=== PATIENT | female | born 1990 | race Hispanic/Latino ===

== ENCOUNTER 2018-11-10 18:06 | Emergency (ER) | payer BC ==
[2018-11-10 18:15] VITALS: BP 144/88; PULSE 85; RESP 18; TEMP 98.7; O2SAT 99
[2018-11-10] MEDS ORDERED: Lidocaine 1% (10 ml) Inj INFIL ONE (18:33)
[2018-11-10] MEDS ORDERED: Lidocaine 1% Inj (20ml) ONE (18:47)
--- NOTE | 2018-11-10 19:22 | ED PDOC ---
Upper Extremity Pain/Injury Time Seen by Provider: 11/10/18 18:16 Chief Complaint (Nursing): Finger,Hand,&Wrist Chief Complaint (Provider): Finger,Hand,&Wrist History Per: Patient History/Exam Limitations: no limitations Onset/Duration Of Symptoms: Hrs Current Symptoms Are (Timing): Still Present Additional Complaint(s): Patient is a 28 y/o female with no significant PMHx who states she was picking up clothes off of the floor earlier today when a splinter lodged into the nail of her right index finger eliciting pain. Patient was prompted to come to the ED by her sister, who works as an [place] EMT, concerned for infection. Patient denies weakness and numbness or tingling. PCP: None Provided Past Medical History Reviewed: Historical Data, Nursing Documentation, Vital Signs Vital Signs: Last Vital Signs Temp 98.7 F 11/10/18 18:13 Pulse 85 11/10/18 18:13 Resp 18 11/10/18 18:13 BP 144/88 11/10/18 18:13 Pulse Ox 99 11/10/18 18:13 - Medical History PMH: No Chronic Diseases - Surgical History Surgical History: No Surg Hx - Family History Family History: States: Unknown Family Hx - Immunization History Hx Tetanus Toxoid Vaccination: No Hx Influenza Vaccination: No Hx Pneumococcal Vaccination: No - Home Medications Home Medications: Ambulatory Orders Medication Instructions Recorded traMADol [Ultram] 50 mg PO TID #7 tab 11/08/15 - Allergies Allergies/Adverse Reactions: Allergies Allergy/AdvReac Type Severity Reaction Status Date / Time No Known Allergies Allergy Verified 11/10/18 18:13 Review of Systems ROS Statement: Except As Marked, All Systems Reviewed And Found Negative Musculoskeletal: Positive for: Other (pain to right index fingernail) Neurological: Negative for: Weakness, Numbness (or tingling) Physical Exam - Reviewed Nursing Documentation Reviewed: Yes Vital Signs Reviewed: Yes - Physical Exam Appears: Positive for: No Acute Distress Head Exam: Positive for: ATRAUMATIC, NORMAL INSPECTION, NORMOCEPHALIC Skin: Positive for: Normal Color, Warm, DRY Eye Exam: Positive for: EOMI, Normal appearance, PERRL Neck: Positive for: Normal, Painless ROM, Supple Cardiovascular/Chest: Positive for: Regular Rate, Rhythm. Negative for: Murmur Respiratory: Positive for: Normal Breath Sounds. Negative for: Respiratory Distress Extremity: Positive for: Normal ROM (actively), Capillary Refill (less than 2 seconds), Other (foreign body noted in medial portion of second digit of right hand under nail; no bleeding). Negative for: Pedal Edema, Deformity Neurological/Psych: Positive for: Alert, Oriented (x3) - ECG O2 Sat by Pulse Oximetry: 99 (RA) Pulse Ox Interpretation: Normal Medical Decision Making Medical Decision Making: Time: 1832 Impression: Foreign Body In Nail of Right Index Finger Plan: Lidocaine 3 ml INFIL Scribe Attestation: Documented by Vikram Navarro, acting as a scribe Monique Bashir PA-C. Provider Scribe Attestation: All medical record entries made by the Scribe were at my direction and personally dictated by me. I have reviewed the chart and agree that the record accurately reflects my personal performance of the history, physical exam, medical decision making, and the department course for this patient. I have also personally directed, reviewed, and agree with the discharge instructions and disposition. Procedures - Time-Out Type of Procedure: Foreign body removal Site of Procedure: R index finger Correct Patient: Yes Correct Procedure: Yes Correct Site Marked: Yes PA/Tech: Mckay MURPHY - Additional Procedures Progress: Foreign body removed in its entirety from underneath the R 2nd digit without any bleeding or complications. Area was irrigated heavily after removal but no residual FB was noted. Pt. tolerated procedure very well. Disposition - Clinical Impression Clinical Impression: Splinter in skin - Patient ED Disposition Is Patient to be Admitted: No - Disposition Referrals: [facility] J[facility] [Outside] Disposition: Routine/Home Disposition Time: 19:22 Condition: STABLE Additional Instructions: COLT LAYNE, thank you for letting us take care of you today. Your provider was Dayo Spear MD and you were treated for RT POINTER FINGER PAIN. The emergency medical care you received today was directed at your acute symptoms. If you were prescribed any medication, please fill it and take as directed. It may take several days for your symptoms to resolve. Return to the Emergency Dep artment if your symptoms worsen, do not improve, or if you have any other problems. Please contact your doctor or call one of the physicians/clinics you have been referred to that are listed on the Patient Visit Information form that is included in your discharge packet. Bring any paperwork you were given at discharge with you along with any medications you are taking to your follow up visit. Our treatment cannot replace ongoing medical care by a primary care provider outside of the emergency department. Thank you for allowing the [facility] team to be part of your care today. If you had an X-Ray or CT scan: A Radiologist will review the ED reading if any change in treatment is needed we will contact you. If you had a blood, urine, or wound culture: It will take several days for the results, if any change in treatment is needed we will contact you. If you had an STI test: It will take 48 hours for the results. Please call after 1 week if you have not heard back. Instructions: Foreign Body in Skin (DC) Forms: N-1-1 (Irish)
== END 2018-11-10 19:24 | disposition home or self-care (01) ==
LOC: H.ER 18:06
DX: M79.5 Residual foreign body in soft tissue (principal)